=== PATIENT | female | born 1980 | race Two or more races ===

== ENCOUNTER 2023-05-11 18:00 | Emergency (ER) | payer OTHER ==
[~2023-05-11] VITALS: Ht 162.6 cm; Wt 78.0 kg
[2023-05-11] MEDS ORDERED: KETOROLAC TROMETH 60MG/2ML VIAL IM ONE (19:15)
[2023-05-11 19:25] VITALS: PULSE 85; RESP 16; O2SAT 98
[2023-05-11] MEDS ORDERED: ONDANSETRON HCL 4 MG/2 ML VIAL IV ONE (21:00)
[2023-05-11] MEDS ORDERED: MORPHINE SULFATE 4 MG/ML SYR/VIAL IV ONE (21:00)
[2023-05-12] MEDS ORDERED: HYDROcodone-ACET 5/325MG TAB PO ONE (02:00)
[2023-05-12 02:33] VITALS: BP 103/67; PULSE 72; RESP 16; O2SAT 97
[2023-05-12] MEDS ORDERED: HYDR-4902 PO (03:50)
== END 2023-05-12 03:57 | disposition home or self-care (01) ==
LOC: ER 18:00 → EDBD 18:00 → ER 05-12 03:57
DX: S22.069A Unspecified fracture of T7-T8 vertebra, initial encounter for closed fracture (principal); W11.XXXA Fall on and from ladder, initial encounter; Y93.89 Activity, other specified; Y92.89 Other specified places as the place of occurrence of the external cause; Y99.8 Other external cause status
CPT/HCPCS: 70450; 71250; 72125; 74176; 96372; 96374; 96375; 99285; J1885; J2270; J2405